=== PATIENT | female | born 1935 | race Caucasian/White ===

== ENCOUNTER 2018-09-26 08:10 | Outpatient (CLI) | payer MEDICARE | END 2018-09-26 10:10 | disposition home or self-care (01) | LOC: ECT 08:10 | DX: F33.2 Major depressive disorder, recurrent severe without psychotic features (principal); E78.2 Mixed hyperlipidemia; R73.03 Prediabetes; Z79.899 Other long term (current) drug therapy ==

== ENCOUNTER 2018-10-09 06:27 | Outpatient (RCR) | payer MEDICARE ==
[~2018-10-09] VITALS: Ht 162.6 cm; Wt 62.6 kg
[2018-10-09] MEDS ORDERED: Ketorolac 30mg Inj ONE (06:28)
[2018-10-09] MEDS ORDERED: NS 500ML ONE (06:28)
[2018-10-09] MEDS ORDERED: Methohexital Sodium Syr 100mg/10ml IVP ONE (06:28)
[2018-10-09] MEDS ORDERED: Succinylcholine 20mg/ml 10ml vial ONE (06:28)
[2018-10-09] MEDS ORDERED: Midazolam 2mg/2ml Inj ONE (06:28)
[2018-10-09 10:30] VITALS: BP 167/85
[2018-10-09] MEDS ORDERED: Midazolam 2mg/2ml Inj IVP PRN (10:44)
[2018-10-09] MEDS ORDERED: Ketorolac 30mg Inj IV ONE (10:44)
[2018-10-09 10:50] VITALS: BP 163/85
[2018-10-09 10:55] VITALS: BP 180/89
[2018-10-09 10:58] VITALS: BP 169/74
[2018-10-09 11:00] VITALS: BP 153/66
[2018-10-09 11:05] VITALS: BP 173/74
--- NOTE | 2018-10-09 12:05 | NUR ---
Patient was discharged to [facility] via [facility]. Addendum: 10/10/18 at 0547 by JULIAN KUMAR RN RN Amended: Links added.
[2018-10-11] MEDS ORDERED: Midazolam 2mg/2ml Inj ONE (08:00)
[2018-10-11] MEDS ORDERED: Ketorolac 30mg Inj ONE (08:00)
[2018-10-11] MEDS ORDERED: Methohexital Sodium Syr 100mg/10ml IVP ONE (08:00)
[2018-10-11] MEDS ORDERED: NS 500ML ONE (08:00)
[2018-10-11] MEDS ORDERED: Succinylcholine 20mg/ml 10ml vial ONE (08:00)
[2018-10-11 09:28] VITALS: BP 157/83
[2018-10-11 09:45] VITALS: BP 162/85
[2018-10-11 09:50] VITALS: BP 177/78
[2018-10-11 09:55] VITALS: BP 177/78
[2018-10-11 10:00] VITALS: BP 166/82
== END 2018-10-13 | disposition home or self-care (01) ==
LOC: ECT 06:27
DX: F33.2 Major depressive disorder, recurrent severe without psychotic features (principal); R73.03 Prediabetes; E78.2 Mixed hyperlipidemia
CPT/HCPCS: 90870; J0330; J1885; J2250; J7040